=== PATIENT | female | born 1965 | race Caucasian/White ===

== ENCOUNTER 2022-10-22 08:43 | Outpatient (AMB) | payer OTHER, SELFPAY ==
[2022-10-22 08:51] VITALS: BP 150/86; PULSE 87; TEMP 36.3; O2SAT 100; BMI 21.4
--- NOTE | 2022-10-22 08:51 | A.OFFVIS_ITS ---
Intake Vital Signs 10/22/22 08:51 Height 5 ft 6 in Weight 132 lb 11.492 oz BMI 21.4 BP 150/86 H Blood Pressure Location Rt brachial Position Sitting Pulse 87 Pulse Source Pulse Oximeter Temp 97.4 F Temp Source Skin Pulse Oximetry (%) 100 Intake Visit Reasons: Joint Pain - Confirmed Intake Note: * New pt presents today for joint pain consult. * C/o pain in multiple areas, throughout body. 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 This condition started about 2 years ago with pain affecting multiple joints including hands, fingers, wrists, feet, ankles. Sometimes associated with swelling and morning stiffness lasting 2 hours. Intermittently her rings would be tight. Patient states that she gets episodes lasting around 2 weeks then they self-resolve. Advil helps her symptoms. She denies any rashes. Denies any history of DVT/PE. Denies Raynaud's. She states that her mother had some form of arthritis but she is not sure whether it was rheumatoid arthritis versus others. Of note patient was diagnosed with idiopathic subglottic stenosis 5 years ago and receives dilations 1 to 3 times a year since her diagnosis. [facility] Medical History (Updated 10/22/22 @ 09:27 by Lloyd Haines MD) Burning mouth syndrome Flushing Surgical History History of surgery Family History Mother Rheumatoid arthritis Father No problems noted. Social History Alcohol intake: current Alcohol intake frequency: does not drink Patient Tobacco Use Status: Never used Tobacco Current occupational status: employed Current occupation: book keeper Female Reproductive History Menstrual Total pregnancies: 2 Number of Living Children: 2 Review of Systems Const Denies weight loss Eyes Reports dry eyes and Reports itchy eyes Musc Reports arthralgias, Reports joint swelling and Reports stiffness Aller/Immun Reports itchy eyes Physical Exam Vital Signs: Last Vital Signs Temp 97.4 F 10/22/22 08:51 Pulse 87 10/22/22 08:51 BP 150/86 H 10/22/22 08:51 Pulse Ox 100 10/22/22 08:51 BMI result Body Mass Index 21.4 Const General: cooperative, healthy appearing and comfortable Nutritional Appearance: well nourished Orientation/consciousness: patient oriented x3 Limitations: no limitations HEENT Head: Yes normocephalic and Yes atraumatic Mouth: moist mucous membranes Resp Effort & Inspection: normal respiratory effort and able to speak in complete sentences Auscultation: clear to auscultation bilaterally Cardio Rate: regular rate Rhythm: regular rhythm GI Inspection: No distended Palpation (GI): Soft to palpation and nontender Skin General skin exam: no rashes or lesions noted Neuro General: patient oriented x3 Extrem Other: Minimal osteoarthritic changes of both hands with no active synovitis Negative MCP squeeze test No swollen or tender joints Normal nailfold capillaroscopy Assessment & Plan Assessment & Plan (1) Multiple joint pain: Code(s): M25.50 - Pain in unspecified joint Plan: This is a 56-year-old female with a past medical history of subglottic stenosis who presents for evaluation of a 2 year history of intermittent joint pain swelling and stiffness affecting hands, fingers, wrists, ankles and feet. Patient's joint pain has some inflammatory features. Will order comprehensive serology to screen for underlying autoimmune rheumatic disease Plan I spent 47 minutes reviewing patient's chart, evaluating patient, ordering diagnostic workup, counseling patient and documenting in the chart Orders: Orders Cyclic Citrullinated Peptide Today M06.9 - Rheumatoid arthritis, unspecified Comprehensive Met. Panel Today M06.9 - Rheumatoid arthritis, unspecified C Reactive Protein Today M06.9 - Rheumatoid arthritis, unspecified Rheumatoid Factor Today M06.9 - Rheumatoid arthritis, unspecified Complete Blood Count Auto Diff Today M06.9 - Rheumatoid arthritis, unspecified Erythrocyte Sedimentation Rate Today M06.9 - Rheumatoid arthritis, unspecified ERIC Reflex Titer and Pattern Today M06.9 - Rheumatoid arthritis, unspecified Hepatitis A,B,C Profile Today Z11.59 - Encounter for screening for other viral diseases ANCA Vasculitides Today I77.6 - Arteritis, unspecified Immunofixation Pnl, Serum Today I77.6 - Arteritis, unspecified Protein Electrophoresis, Serum Today I77.6 - Arteritis, unspecified Immunoglobulin G Subclasses Today D89.89 - Other specified disorders involving the immune mechanism, not elsewhere classified Angiotensin Converting Enzyme Today D86.9 - Sarcoidosis, unspecified Lysozyme, Serum Today D86.9 - Sarcoidosis, unspecified Protein Creatinine Ratio, Ur Today M35.00 - Sjogren syndrome, unspecified Complement C3 Today M35.00 - Sjogren syndrome, unspecified Complement C4 Today M35.00 - Sjogren syndrome, unspecified Anti DNA DS Antibody Today M35.00 - Sjogren syndrome, unspecified Anti Extractable Nuclear Ag Today M35.00 - Sjogren syndrome, unspecified Sjogren's Antibodies Today M35.00 - Sjogren syndrome, unspecified UA w Microscopic Today M35.00 - Sjogren syndrome, unspecified Scleroderma 70 Antibody Today M06.9 - Rheumatoid arthritis, unspecified Anti-Centromere B Antibodies Today M06.9 - Rheumatoid arthritis, unspecified Coding Level of Care Code New Pt Level 4 (63128) Diagnoses Multiple joint pain M25.50
== END 2022-10-22 09:18 | disposition home or self-care (01) ==
PROVIDERS: PCP Nurse Practitioner Family; Visit Provider Student in an Organized Health Care Education/Training Program
DX: M25.50 Pain in unspecified joint (principal)
CPT/HCPCS: 99204

== ENCOUNTER → 2022-10-22 08:43 | Outpatient (BNVA) | payer OTHER, SELFPAY | PROVIDERS: Visit Provider Student in an Organized Health Care Education/Training Program ==

== ENCOUNTER 2022-10-22 09:30 | Outpatient (REF) | payer OTHER, SELFPAY ==
[2022-10-22 10:00] LABS: MANUAL DIFF FLAG NO
[2022-10-22 10:59] LABS: Basophils Percent Auto 1.1 % (0-2); Eosinophils Percent Auto 1.1 % (0-4); Hematocrit 41.2 % (37.0-47.0); Imm Gran Abs Auto 0.01 X10*3/uL (0.00-0.03); Imm Gran Pct Auto 0.4 % (0.0-0.4); Lymphocytes Absolute Auto 0.9 X10*3/uL (1.2-4.9); Lymphocytes Percent Auto 31.6 % (20-40); Mean Corpuscular Hemoglobin 30.8 pg (27.0-33.0); Mean Corpuscular Volume 90.7 fL (80.0-98.0); Mean Platelet Volume 9.5 fL (9.4-12.3); Monocytes Absolute Auto 0.2 X10*3/uL (0.1-1.2); Monocytes Percent Auto 7.8 % (2-11); Neutrophils Absolute Auto 1.6 x10*3/uL (2.0-8.3); Platelet Count 205 X10*3/uL (160-400); Red Blood Count 4.54 X10*6/uL (4.20-5.50); White Blood Count 2.7 X10*3/uL (4.8-10.8)
[2022-10-22 11:07] LABS: Alanine Aminotransferase 27 U/L (0-31); Albumin Level 4.1 g/dL (3.5-5.0); Alkaline Phosphatase 81 U/L (39-117); Anion Gap 16 (12-20); Aspartate Amino Transferase 28 U/L (5-31); Bilirubin Total 0.5 mg/dL (0.0-1.0); Blood Urea Nitrogen 16 mg/dL (9-16); C Reactive Protein 0.12 mg/dL (< or = 0.50); Calcium 9.4 mg/dL (8.4-10.2); Carbon Dioxide 23 mmol/L (22-29); Chloride 106 mmol/L (96-108); Estimated Glomerular Filt Rate > 60; Glucose Random 87 mg/dL (60-115); Potassium 3.6 mmol/L (3.3-5.1); Sodium 141 mmol/L (135-145); Total Protein 6.6 g/dL (6.5-8.0)
[2022-10-22 11:09] LABS: Appearance Urine Clear; Color Urine Yellow; Glucose Urine UA Negative (Negative); Leukocyte Esterase Urine Negative (Negative); Nitrite Urine Negative (Negative); Specific Gravity - Urine 1.015 (1.005-1.025); Urine Blood Negative (Negative); Urine Ketones Negative (Negative); Urine Protein Negative (Neg-Trace)
[2022-10-22 11:15] LABS: Bacteria Urine None Seen (None Seen); Hyaline Casts Urine 0-2 /LPF (0-2); RBC Urine 0-2 /HPF (0-2); Squamous Epithelial Cell Urine 0-2 /HPF (0-2); WBC Urine 0-5 /HPF (0-5)
[2022-10-22 11:16] LABS: HBS Num1 0.36 mIU/mL (0-7.99); HBsAGNum1 0.42 S/CO (0.00-0.99); Hepatitis A Antibody IgM 0.18 Index (0-0.79); Hepatitis B Core Antibody Nonreactive (Nonreactive); Hepatitis B Surface Antigen Negative (Negative); Rheumatoid Factor < 13.0 IU/mL (<15.0); ~HepC Num1 0.08 S/CO (0.00-0.79); ~Hepatitis A Antibody IgM Nonreactive (Nonreactive); ~Hepatitis B Surface Antibody NONREACTIVE (Nonreactive); ~Hepatitis C Antibody Nonreactive (Nonreactive)
[2022-10-22 11:19] LABS: Creatinine Urine 61.59 mg/dL; Total Protein Urine Random < 7 mg/dL (<12)
[2022-10-22 11:43] LABS: Erythrocyte Sedimentation Rate 2 MM/HR (0-20)
[2022-10-23 13:28] LABS: Prot Elec - Albumin 4.2 g/dL (3.8-4.8); Prot Elec - Alpha1 0.3 g/dL (0.2-0.3); Prot Elec - Alpha2 0.6 g/dL (0.5-0.9); Prot Elec - Beta 1 0.4 g/dL (0.4-0.6); Prot Elec - Beta 2 0.3 g/dL (0.2-0.5); Prot Elec - Gamma 0.7 g/dL (0.8-1.7); Prot Elec - Total Protein 6.3 g/dL (6.1-8.1)
[2022-10-23 13:43] LABS: Immunoglobulin G Subclass 1 375 mg/dL (382-929); Immunoglobulin G Subclass 2 275 mg/dL (241-700); Immunoglobulin G Subclass 3 68 mg/dL (22-178); Immunoglobulin G Total 695 mg/dL (600-1640)
[2022-10-23 17:28] LABS: Complement C3 119 mg/dL (83-193)
[2022-10-23 21:52] LABS: Anti DNA DS Antibody <1 IU/mL; Antibody to SS-A Antigen <1.0 NEG AI (<1.0 NEG); Antibody to SS-B Antigen <1.0 NEG AI (<1.0 NEG); Myeloperoxidase Antibody <1.0 AI; Proteinase 3 PR3 Antibodies <1.0 AI; SM/Ribonucleoprotein Ab <1.0 NEG AI (<1.0 NEG); Scleroderma 70 Antibody <1.0 NEG AI (<1.0 NEG); Smith Protein <1.0 NEG AI (<1.0 NEG)
[2022-10-24 23:28] LABS: Anti-Centromere B Antibodies <1.0 NEG AI (<1.0 NEG)
[2022-10-25 08:52] LABS: Angiotensin Converting Enzyme 50 U/L (9-67)
[2022-10-25 09:28] LABS: IgA 77 mg/dL (47-310); IgG 738 mg/dL (600-1640); IgM 113 mg/dL (50-300)
[2022-10-25 15:13] LABS: Cyclic Citrullinated Peptide <16 UNITS
[2022-10-25 19:48] LABS: Lysozyme, Serum 8.9 mcg/mL (5.0-11.0)
[2022-10-27 15:38] LABS: Anti Nuclear Antibody Screen NEGATIVE (NEGATIVE)
== END 2022-10-22 09:31 | disposition home or self-care (01) ==
LOC: HO.10HDL 09:30
PROVIDERS: Visit Provider Student in an Organized Health Care Education/Training Program
DX: Z11.59 Encounter for screening for other viral diseases (principal); M35.00 Sjogren syndrome, unspecified; M06.9 Rheumatoid arthritis, unspecified; I77.6 Arteritis, unspecified; D86.9 Sarcoidosis, unspecified; D89.89 Other specified disorders involving the immune mechanism, not elsewhere classified
CPT/HCPCS: 36415; 80053; 81001; 82164; 82784; 84156; 84165; 85025; 85549; 85652; 86021; 86038; 86140; 86160; 86200; 86225; 86235; 86334; 86431; 86704; 86706; 86709; 86803; 87340